=== PATIENT | male | born 1980 | race Caucasian/White ===

== ENCOUNTER 2017-04-30 22:38 | Emergency (ER) | payer BC ==
[2017-05-01] MEDS ORDERED: Ibuprofen TAB* 800 MG PO ONE (04:02)
[2017-05-01] MEDS ORDERED: HYDROcodone/ACETAMIN 5-325 MG* 1 TAB PO ONE (04:02)
--- NOTE | 2017-05-01 04:06 | ED ---
Lower Extremity - HPI Summary HPI Summary: Pt here /w Rt ankle pain and swelling after twisting/falling earlier tonight. Was attempting to hug his friend when he fell awkwardly and rolled ankle - heard pop and had pain. Denies numbness, weakness but has pain at rest and with movement. Has not tried anything as he had been drinking ETOH. Ankle is swollen and deformed. - History of Current Complaint Chief Complaint: EDExtremityLower Stated Complaint: RIGHT ANKLE INJURY Time Seen by Provider: 05/01/17 03:21 Hx Obtained From: Patient, Family/Bioinformatics Associate - female partner Pain Intensity: 0 - Allergies/Home Medications Allergies/Adverse Reactions: Allergies Allergy/AdvReac Type Severity Reaction Status Date / Time Penicillins Allergy Rash And Verified 05/06/17 09:09 Itching PMH/Surg Hx/FS Hx/Imm Hx Previously Healthy: Yes Endocrine/Hematology History: Denies: Hx Anticoagulant Therapy, Hx Blood Disorders - Immunization History Date of Tetanus Vaccine: unknown Infectious Disease History: No Infectious Disease History: Denies: Traveled Outside the in Last 30 Days - Social History Occupation: Employed Full-time Lives: With Family Alcohol Use: Weekly Hx Substance Use: No Substance Use Type: Reports: None Hx Tobacco Use: Yes Smoking Status (MU): Current Every Day Smoker Review of Systems Musculoskeletal: Other - SEE HPI Skin: Other - SEE HPI Neurological: Other - SEE HPI Psychological: Normal All Other Systems Reviewed And Are Negative: Yes Physical Exam Triage Information Reviewed: Yes Vital Signs On Initial Exam: Initial Vitals Temp Pulse Resp BP Pulse Ox 98.7 F 85 12 132/72 98 04/30/17 22:41 04/30/17 22:41 04/30/17 22:41 04/30/17 22:41 04/30/17 22:41 Vital Signs Reviewed: Yes Appearance: Positive: Well-Appearing, Well-Nourished, Pain Distress - mild at rest - worse w/ movement Skin: Positive: Warm, Dry - tenting, ecchymosis, edema about ankle Head/Face: Positive: Normal Head/Face Inspection Eyes: Positive: EOMI ENT: Positive: Hearing grossly normal Respiratory/Lung Sounds: Positive: Breath Sounds Present Cardiovascular: Positive: Pulses are Symmetrical in both Upper and Lower Extremities Musculoskeletal: Positive: Pain @. Negative: Strength/ROM Intact - ankle is w/ limted ROM d/t pain and deformity Neurological: Positive: Sensory/Motor Intact - can move toes, Alert, Oriented to Person Place, Time, CN Intact II-III Psychiatric: Positive: Normal - Antonette Coma Scale Coma Scale Total: 15 Procedures - Splinting Location: Rt ankle - sking tenting medially - reduced and improved Hand-Made Type: fiberglass Splint: posterior walking - + sugar tong Pre-Proc Neuro Vasc Exam: normal Post-Proc Neuro Vasc Exam: normal Diagnostics - Vital Signs Vital Signs Temp Pulse Resp BP Pulse Ox 04/30/17 22:41 98.7 F 85 12 132/72 98 - Laboratory Diagnostic Studies Comment: Fibular fx w/ talus malalignment/space in ankle mortise medially Lab Statement: Any lab studies that have been ordered have been reviewed, and results considered in the medical decision making process. Re-Evaluation - Re-Evaluation First Eval Change: Improved - s/p reduction Lower Extremity Course/Dx - Course Course Of Treatment: Pt tolerated reduction well w/o pain medication which was performed as he had been drinking earlier. Appeared sober and vitals strong before d/c so hydrocodone was rx'd for pain as needed. He is aware he must not take this medication w/ ETOH and not operate machinery while taking. He is also aware he may take NSAIDs for relief of pain and swelling. - Diagnoses Provider Diagnoses: Closed right fibular fracture, Subluxation of right ankle joint Discharge - Discharge Plan Condition: Stable Disposition: HOME Prescriptions: HYDROcodone/ACETAMIN 5-325 MG* [[place] 5-325 TAB*] 1 tab PO Q6H PRN #20 tab MDD 4 PRN Reason: Pain Patient Education Materials: Ankle Fracture (ED), Crutch Instructions (ED), Splint Care (ED) Forms: *Work Release Referrals: Remi Davalos MD [Medical Doctor] - Additional Instructions: Rest, ice, elevate Take medications as directed Do not bear weight - use crutches to ambulate Follow-up with orthopedics Tuesday - call to schedule an appointment - phone number included here. *if you develop numbness, weakness or discoloration of your toes, you may loosen CHAPO wrap and elevate your leg for 20 minutes - if symptoms persist, return to ED
[2017-05-01 04:49] VITALS: BP 112/67
--- NOTE | 2017-05-01 06:22 | RAD ---
INDICATION: Right ankle injury COMPARISON: None TECHNIQUE: AP, lateral, and oblique views were obtained. FINDINGS: There is no oblique, mildly distracted distal fibular fracture. There are no other fractures. There is lateral subluxation of the ankle mortise with associated mild diffuse soft tissue swelling. IMPRESSION: FIBULAR FRACTURE WITH LATERAL SUBLUXATION AT THE ANKLE MORTISE.
--- NOTE | 2017-05-01 07:29 | RAD ---
INDICATION: Traumatic fracture right ankle COMPARISON: Right ankle April 30, 2017 TECHNIQUE: AP, lateral, and oblique views were obtained. FINDINGS: A cast has been applied. There is again an oblique distal fibular fracture with mild distraction and there is lateral subluxation at the ankle mortise. The appearance unchanged. IMPRESSION: CASTED FRACTURE/SUBLUXATION ABOUT THE ANKLE DESCRIBED.
== END 2017-05-01 04:54 | disposition home or self-care (01) ==
LOC: ED 22:38
DX: S82.61XA Displaced fracture of lateral malleolus of right fibula, initial encounter for closed fracture (principal); W19.XXXA Unspecified fall, initial encounter; Y93.89 Activity, other specified; Y92.9 Unspecified place or not applicable; Z88.0 Allergy status to penicillin; Z72.0 Tobacco use
CPT/HCPCS: 27840; 99283; A9270-GY

== ENCOUNTER 2017-05-11 06:09 | Day surgery (SDC) | payer BC ==
[~2017-05-11 06:09] MED LIST: Buffered Lidocaine 0.9% SYRIN* 5 ML/SYR SYRINGE INTRADERM ONE; Buffered Lidocaine 0.9% SYRIN* 5 ML/SYR SYRINGE ONE; Clindamycin 900 MG IVPREMIX(* 900 MG/50 ML SDV IV ONE; Famotidine IV* 10 MG/ML 2 ML (20 mg) IV ONE; Famotidine IV* 10 MG/ML 2 ML (20 mg) ONE
[2017-05-11] MEDS ORDERED: Bupivacaine 0.5% W/EPI SDV* 10 ML VIAL INJ ONE (07:06)
[2017-05-11] MEDS ORDERED: fentaNYL* 50 MCG/ML 2 ML VIAL (100 MCG VIAL) ONE ×2 (07:39→08:06)
[2017-05-11] MEDS ORDERED: KETAMINE HCL* 50 MG/ML 10 ML VIAL ONE (07:40)
[2017-05-11] MEDS ORDERED: Midazolam* 1 MG/ML 5 ML VIAL (5 MG) ONE (07:40)
[2017-05-11] MEDS ORDERED: Dexamethasone IV* 4 MG/ML 1 ML (4 MG) ONE (08:06)
[2017-05-11] MEDS ORDERED: Ketorolac INJ* 30 MG/ML 1 ML VIAL ONE (08:06)
[2017-05-11] MEDS ORDERED: Lidocaine 2% PF * 5 ML VIAL ONE (08:06)
[2017-05-11] MEDS ORDERED: Propofol* 10 MG/ML 20 ML BTL IV PUSH ONE ×2 (08:06→09:08)
[2017-05-11] MEDS ORDERED: Ondansetron INJ* 2 MG/ML VIAL ONE (08:06)
[2017-05-11] MEDS ORDERED: DiMENhydriNATE IV* 50 MG/ML VIAL IV PUSH PRN (08:25)
[2017-05-11] MEDS ORDERED: HYDROmorphone* 1 MG/ML 1 ML SYR ONE ×2 (08:55→09:40)
[2017-05-11] MEDS: HYDROmorphone* 1 MG/ML 1 ML SYR IV PRN ×5 (09:41→10:18)
--- NOTE | 2017-05-11 09:49 | RAD ---
CPT II Codes: 6045F INDICATION: Right ankle fracture. Fluoroscopic services provided for referring physician. 37.4 seconds of fluoroscopy time was used. Approximately 8 spot images demonstrates internal fixation of the distal fibula. IMPRESSION: Fluoroscopic services provided for referring physician.
[2017-05-11] MEDS ORDERED: oxyCODONE/Acetamin 5/325 MG* TAB ONE ×2 (09:54→10:38)
[2017-05-11] MEDS: oxyCODONE/Acetamin 5/325 MG* TAB PO PRN ×2 (09:54→10:39)
[2017-05-11 12:31] VITALS: BP 160/89
--- NOTE | 2017-05-12 14:00 | OP ---
OPERATIVE NOTE: DATE OF OPERATION: 05/11/17 DATE OF : 84 SURGEON: Remi Davalos MD HEAD SOFT SUGAR OPERATOR: ANNI Grace. A physician patient clerical assistant was required for retraction and positioning throughout the procedure. ANESTHESIOLOGIST: Dr. Marquis ANESTHESIA: General anesthesia, LMA; local anesthesia, 0.5% Marcaine with epinephrine, 9 cc. PRE-OP DIAGNOSES: 1. Displaced right lateral malleolus fracture, ankle. 2. Possible right ankle syndesmosis injury. POST-OP DIAGNOSES: 1. Displaced right lateral malleolus ankle fracture. 2. No unstable right syndesmosis injury, ankle. OPERATIVE PROCEDURE: 1. Open reduction and internal fixation, right ankle lateral malleolus. ANTIBIOSIS: 900 mg clindamycin IV. IV FLUIDS: 1200 cc crystalloid. TOURNIQUET TIME: 61 minutes at 300 mmHg. COMPLICATIONS: None. ESTIMATED BLOOD LOSS: Minimal. SPECIMEN: None. IMPLANTS: Synthes one-third tubular plate, 7-hole with 5 screws. There was also a 3.5 mm cortical fully threaded screw placed across the fracture line with lag technique. INDICATIONS FOR PROCEDURE: The patient is a 36-year-old man, gay, who presented to my clinic on May 02 with a right ankle fracture sustained 2 days prior on April 30 when he slipped getting into a car. When he injured himself, he felt a pop about the right ankle. He went to the emergency room, where he was diagnosed with a right distal fibula fracture. Some form of reduction maneuver was performed and the patient was placed in a splint. The patient presented in a splint to me. His right ankle had significant swelling about it and no wrinkling. There was ecchymosis present. X-rays demonstrated a very displaced lateral malleolus SER-type Perez B fracture as well as significant medial clear space widening. In order to reduce more quickly the soft tissue swelling and make him more comfortable, I wanted to partially reduce his ankle or fully reduce his ankle in the office. Therefore, I performed an ankle hematoma block and a reduction maneuver. This partially reduced the medial clear space and ankle to a more anatomic alignment. We placed him in a splint, instructed him on constant lower extremity elevation, provided him with some narcotics, and scheduled surgery. I discussed risks and potential complications of the surgery at that time. DESCRIPTION OF PROCEDURE: Preoperative written consent was obtained in holding. Operative extremity was marked in holding. I took down the splint in preoperative holding to do a skin check. The skin was fully intact, with no compromised integrity. The patient barely wrinkled laterally and medially. He still had some soft tissue swelling present. The patient was brought back to the operating room and placed supine on the operating table. The patient was sedated and an LMA was placed. A blanket pump was placed under the right hemipelvis and bone foam was placed under the right lower extremity. C-arm was brought in, confirmed talar dome. Right lower extremity was prepped and draped. Surgical time-out was performed. Esmarch was applied and the tourniquet was elevated to 300 mmHg. A lateral ankle incision was made, curving just anterior distally and proximally extending to approximately 10 cm proximal to the distal tip of the lateral malleolus. With a new knife, I continued through the subcutaneous tissue superficially and then continued the dissection with spreading dissection scissors. I got down easily to the bone and the fracture site. No nerves were encountered during the dissection. I irrigated out the fracture site. A curette , mini rongeur was used to debride some fibrous tissue. Using traction and internal rotation, we reduced the fracture and placed a tong fracture reduction forceps across the fracture site. Using lag technique, a 3.5 mm screw was placed from posterior and distal to anterior and proximal across the fracture site. This reduced and kept fixed the fracture site beautifully. I then sized some one-third tubular plates over the distal fibula. I was clear that only 2 screws would fit in the distal fragment. One hole would be taken up by the area of bone where the lag screw is present, so I left 4 additional screws proximal, three to be for the fibula and one to be for possible syndesmosis screw. This made me pick a 7-hole plate. I placed 1 non-locking screw distally and 1 proximally. I took images that showed excellent plate position. I filled the remainder of the plate with 3 non-locking screws proximally, cortical, and 1 non-locking screw and 1 locking screw distally. I then performed external rotation and Cotton test. The medial clear space and tibiofibula clear spaces did not significantly change. Therefore, I decided the syndesmosis did not need to be fixed. I took final x-rays; AP, mortise, lateral, and saved them. Irrigation of wound. I put perhaps 3 stitches, [id number], in the deep fascia using Vicryl 2-0 suture. Closed subcutaneous tissue with buried simple stitches using Vicryl 3-0 suture. Closure of skin with minda. Placed 9 cc of Marcaine 0.5% with epinephrine about the skin incision and most proximally. Xeroform, 4x4s, sterile Webril. A posterior splint followed by sugar-tong splint. Tourniquet was dropped. The patient was awakened and brought to the PACU. DISPOSITION: The patient will be nonweightbearing with crutches. I instructed that, especially given the soft tissue swelling that was present the day of surgery, it is vitally important that he keep that right lower extremity elevated above his heart, especially for the first week postoperatively to avoid soft tissue complications and infection. The patient will be given Percocet for pain control, aspirin b.i.d. for 2 weeks for DVT prophylaxis, and Bactrim b.i.d. for 5 days for infection prophylaxis. The patient will follow up in 10 to 14 days postoperatively in clinic. [id number]/[facility] #: [id number] [place]
== END 2017-05-11 12:35 | disposition home or self-care (01) ==
LOC: OR 06:09
PROVIDERS: ATTEND Orthopaedic Surgery
DX: S82.61XA Displaced fracture of lateral malleolus of right fibula, initial encounter for closed fracture (principal); W01.0XXA Fall on same level from slipping, tripping and stumbling without subsequent striking against object, initial encounter; Y92.9 Unspecified place or not applicable; F17.200 Nicotine dependence, unspecified, uncomplicated
CPT/HCPCS: 76000; A9270-GY; C1713; C1776; J1100; J1170; J1885; J2250; J2405; J2704; J3010

== ENCOUNTER 2018-02-02 14:44 | Emergency (ER) | payer BC ==
--- NOTE | 2018-02-02 15:27 | UC ---
Epistaxis Nasal HPI - HPI Summary HPI Summary: 37 yo p/w acute nosebleed x 2.5 hours while working in the [employer] at work- temp was around 114 degrees and pt has had a recent cold and has had some nasal congestion, denies trauma or manual manipulation - History of Current Complaint Chief Complaint: UCGeneralIllness Stated Complaint: NOSE BLEED Time Seen by Provider: 02/02/18 15:10 Hx Obtained From: Patient Hx From Patient Unobtainable Due To: Other Onset/Duration: Sudden Onset, Lasting Hours Timing: Hours Severity Initially: Severe Severity Currently: Moderate Pain Intensity: 0 - Allergies/Home Medications Allergies/Adverse Reactions: Allergies Allergy/AdvReac Type Severity Reaction Status Date / Time Penicillins Allergy Hives/Diff. Verified 02/02/18 14:57 Breathing/I tching Home Medications: Home Medications NK [No Home Medications Reported] 02/02/18 [History Confirmed 02/02/18] PMH/Surg Hx/FS Hx/Imm Hx - Surgical History Surgical History: Yes Surgery Procedure, Year, and Place: right orif at age 19 yrs - [facility] [place]. scalp laceration repair at age 19 yrs - [facility] [place]. nasal polyp excision 2017 - [facility] [place] - Social History Alcohol Use: Weekly Alcohol Amount: reports one case beer per week Substance Use Type: None Smoking Status (MU): Current Every Day Smoker Amount Used/How Often: 1/4 - 1/2 ppd for 17 yrs Review of Systems Constitutional: Negative Skin: Negative Eyes: Other ENT: Epistaxis Respiratory: Negative Cardiovascular: Negative Gastrointestinal: Negative Genitourinary: Negative Motor: Negative Neurovascular: Negative Musculoskeletal: Negative Neurological: Negative Psychological: Negative All Other Systems Reviewed And Are Negative: Yes Physical Exam Triage Information Reviewed: Yes Appearance: No Pain Distress Vital Signs: Initial Vital Signs Temp 36.9 C 02/02/18 14:51 Pulse 91 02/02/18 14:51 Resp 18 02/02/18 14:51 BP 153/94 02/02/18 14:51 Pulse Ox 94 02/02/18 14:51 Eye Exam: Normal ENT Exam: Normal ENT: Positive: Nasal drainage, Other - resolving epistaxis no pulsating vessel noted in B/L nares Dental Exam: Normal Neck exam: Normal Neck: Positive: 1 Respiratory Exam: Normal Respiratory: Positive: Lungs clear Cardiovascular: Positive: Tachycardia Abdominal Exam: Normal Musculoskeletal Exam: Normal Neurological Exam: Normal Psychological Exam: Normal Skin Exam: Normal Epistaxis Nasal Course/Dx - Course Course Of Treatment: nasal tampon inserted on right nostril due to residual oozing and bleeding, which helped bleeding to stop, HR came down from 91 to 80's , pt has no h/o bleeding dyscrasia,. 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
[2018-02-02 15:53] VITALS: BP 144/87
== END 2018-02-02 16:50 | disposition home or self-care (01) ==
LOC: UCEAST 14:44
DX: R04.0 Epistaxis (principal); R00.0 Tachycardia, unspecified; Z88.0 Allergy status to penicillin; F17.210 Nicotine dependence, cigarettes, uncomplicated
CPT/HCPCS: 30901; 99211; G0463